=== PATIENT | female | born 1985 | race African-American/Black ===

== ENCOUNTER → 2019-10-19 | Outpatient (CLI) | payer MEDICAID ==
[2019-10-19 11:41] VITALS: BP 94/51
--- NOTE | 2019-10-19 11:41 | ER RDC ASSESSMENT REPORT ---
Intake - In the Last 14 days Have you traveled outside [place]?: No Have you been in close contact with someone CONFIRMED: No Worked in Healthcare?: No - Symptoms Subjective Fever([place] feverish): Yes Chills: No Muscule Aches: Yes Runny Nose: Yes Sore Throat: No Cough (New or worsening chronic cough): Yes Shortness of breath: Yes Nausea or Vomiting: Yes Headache: Yes Abdominal Pain: No Diarrhea(3 or more loose stools in last 24 hours): No - Do you have any of the following Chronic lung disease: Asthma or emphysema or COPD: No Chronic Lung Disease Comment: History of bronchitis Cystic Fibrosis: No Diabetes: No High Blood Pressure: No Cardiovascular Disease: No Chronic Kidney Disease: No Chronic Liver Disease: No Chronic blood disorder like Sickle Cell Disease: No Weak immune system due to disease or medication: No Neurologic condition that limits movement: Yes Neurological Condition Comment: History of seizures Developmental delay - Moderate to Severe: No Recent (within past 2 weeks) or current : No Morbid Obesity (>100 pounds over ideal weight): No Obesity Comment: 5 feet 6 inches. Unsure of weight. - Objective Temperature: 99.1 F Pulse Rate: 93 Respiratory Rate: 20 Blood Pressure: 94/51 O2 Sat by Pulse Oximetry: 94 Objective: Given above, testing performed: If Testing Performed: Test Specimen Type Sent to General - General Information source: Patient Notes: Patient RDC for COVID testing. Denies a local PCP has been symptomatic since October 14 has muscle aches felt hot with shortness of breath and a cough has been nauseous when coughing and headache with the cough has some recent history of bronchitis and had leftover and albuterol and has taken that which has helped. Reported feeling at times lightheaded. - Related Data Allergies/Adverse Reactions: No Known Allergies Allergy (Unverified 05/30/11 14:49) Past Medical History - General Information source: Patient - Social History Smoking Status: Former Smoker Neurological Medical History: Reports: Hx Seizures Psychiatric Medical History: Reports: Hx Bipolar Disorder, Hx Depression Past Surgical History: Reports: Hx Cholecystectomy Physical Exam - General General appearance: Appears well, Alert In distress: None Notes: PHYSICAL EXAMINATION: GENERAL: Well-appearing and in no acute distress. HEAD: Atraumatic, normocephalic. EYES: sclera anicteric, conjunctiva are normal. ENT: nares patent. Moist mucous membranes. NECK: Normal range of motion, supple without lymphadenopathy LUNGS: CTAB and equal. No wheezes rales or rhonchi. Resp even and unlabored. Lung sounds clear. HEART: Regular rate and rhythm without murmurs ABDOMEN: Soft, nontender, normal bowel sounds, no guarding. EXTREMITIES: No cyanosis. NEUROLOGICAL: Cranial nerves grossly intact. Normal speech. Normal gait. PSYCH: Normal mood, normal affect. SKIN: Warm, Dry, normal turgor, Diagnostic Results Laboratory Results: Informed of negative rapid strep and negative rapid flu results. Pending strep culture and covid testing results. Patient provided instructions regarding COVID to include as a person under investigation for Covid 19, the [place] department of Health and Human Services, division of public health advises you to adhere to the following guidance until your test results are reported to you. If your test result is positive, you will receive additional information from your provider and your local health department at that time. Remain at home until you are cleared by the health provider or public health authorities. Keep a log of visitors to your home, notify any visitors to your home of your isolation status. If you plan to move to a new address or leave the county, notify the local health department in your County. Call your doctor or seek care if you have an urgent medical need. Before seeking medical care, call ahead to get instructions from the provider before arriving at the medical office clinic or hospital. Notify them that you are being tested for the virus that causes Covid 19 so that arrangements can be made, as necessary, to prevent transmission to others in the healthcare setting. Next, notify the local health department in your county. If a medical emergency arises and you need to call 911, inform the first responders that you are being tested for the virus that causes Covid 19. Next, notify the local health department in your county. Patient Education/Counseling Counseling/Education: Patient presents with upper respiratory symptoms worrisome for possible Covid 19. Patient does not have emergency worring symptoms such as difficulty breathing, shortness of breath, chest pain, pressure, confusion or cyanosis. Patient appears suitable for discharge. patient instructed to follow up with Urgent Care or to ED for persisent or worsening symptoms. Patient's vital signs are stable and patient is nontoxic in appearance. Good return precautions have been discussed with patient, patient verbalized understanding and is agreeable with discharge plan of care at this time. RDC Discharge - Discharge Clinical Impression: COVID - 19 SCREENING Condition: Stable Disposition: Home; Selfcare
[2019-10-19 12:32] LABS: A TYPE INFLUENZA AG NEGATIVE (NEGATIVE); B INFLUENZA AG NEGATIVE (NEGATIVE)
== END ==
LOC: RDC 10:49
PROVIDERS: ATTEND Nurse Practitioner Family
DX: Z03.818 Encounter for observation for suspected exposure to other biological agents ruled out (principal); R50.9 Fever, unspecified; M79.10 Myalgia, unspecified site; R09.89 Other specified symptoms and signs involving the circulatory and respiratory systems; R05 Cough; R11.10 Vomiting, unspecified; R51 Headache; Z87.891 Personal history of nicotine dependence; R06.02 Shortness of breath
CPT/HCPCS: 87070; 87880; 87635; 87804; 99201 ×2; C9803

== ENCOUNTER 2020-03-27 13:56 | Emergency (ER) | payer MEDICAID ==
[2020-03-27] MEDS ORDERED: ONDANSETRON 4 MG TAB.RAPDIS PO ONE (14:20)
--- NOTE | 2020-03-27 14:21 | ER Document Report ---
ED Medical Screen (RME) - General Stated Complaint: ABDOMINAL PAIN/VOMITING Time Seen by Provider: 03/27/20 14:18 Notes: HPI: 35-year-old female with history of epilepsy no other significant medical problems presenting with sudden onset of lower abdominal and pelvic cramping that began approximately 2 hours ago. Multiple episodes of vomiting at home no diarrhea. Patient felt fine this morning. No fevers PHYSICAL EXAMINATION: Moderately uncomfortable. Tenderness across the pelvis on palpation generally, limited exam in triage process I have greeted and performed a rapid initial assessment of this patient. A comprehensive ED assessment and evaluation of the patient, analysis of test results and completion of medical decision making process will be conducted by an additional ED providers. - Related Data Allergies/Adverse Reactions: No Known Allergies Allergy (Unverified 05/30/11 14:49) Past Medical History Neurological Medical History: Reports: Hx Seizures Psychiatric Medical History: Reports: Hx Bipolar Disorder, Hx Depression Past Surgical History: Reports: Hx Cholecystectomy - Immunizations Immunizations up to date: No Hx Diphtheria, Pertussis, Tetanus Vaccination: No
[2020-03-27 15:57] LABS: ABSOLUTE LYMPHOCYTES (AUTO) 2.5 10^3/uL (0.5-4.7); ABSOLUTE MONOCYTES (AUTO) 0.6 10^3/uL (0.1-1.4); ABSOLUTE NEUT (AUTO) 7.2 10^3/uL (1.7-8.2); BASOPHILS % (AUTO) 0.2 % (0-2); EOSINOPHILS % (AUTO) 0.3 % (0-6); HEMATOCRIT 39.2 % (36.0-47.0); HEMOGLOBIN 13.6 g/dL (12.0-15.5); LYMPHOCYTES % (AUTO) 24.4 % (13-45); MEAN CORPUSCULAR HEMOGLOBIN 29.6 pg (27.0-33.4); MEAN CORPUSCULAR HGB CONC 34.7 g/dL (32.0-36.0); MEAN CORPUSCULAR VOLUME 85 fl (80-97); MONOCYTES % (AUTO) 5.8 % (3-13); PLATELET COUNT 212 10^3/uL (150-450); RED CELL DISTRIBUTION WIDTH 14.4 % (11.5-14.0); SEGMENTED NEUTROPHILS % (AUTO) 69.3 % (42-78); TOTAL CELLS COUNTED % (AUTO) 100 %; WHITE BLOOD COUNT 10.3 10^3/uL (4.0-10.5)
[2020-03-27 16:16] LABS: ALBUMIN 4.3 g/dL (3.5-5.0); ALKALINE PHOSPHATASE 70 U/L (38-126); ANION GAP 6 (5-19); ASPARTATE AMINO TRANSFERASE 21 U/L (14-36); BILIRUBIN,DIRECT 0.1 mg/dL (0.0-0.4); BILIRUBIN,TOTAL 0.4 mg/dL (0.2-1.3); BLOOD UREA NITROGEN 4 mg/dL (7-20); CALCIUM 9.7 mg/dL (8.4-10.2); CARBON DIOXIDE 26 mmol/L (22-30); CHLORIDE 107 mmol/L (98-107); GLUCOSE 102 mg/dL (75-110); POTASSIUM 3.8 mmol/L (3.6-5.0); TOTAL PROTEIN 7.2 g/dL (6.3-8.2)
[2020-03-27 18:07] LABS: APPEARANCE,URINE SLIGHTLY-CLOUDY; BILIRUBIN,URINE NEGATIVE (NEGATIVE); COLOR,URINE AMBER; GLUCOSE, URINE NEGATIVE (NEGATIVE); KETONES,URINE NEGATIVE (NEGATIVE); LEUKOCYTE ESTERASE,URINE NEGATIVE (NEGATIVE); NITRITE,URINE NEGATIVE (NEGATIVE); PROTEIN,URINE 30 mg/dL (NEGATIVE); URINE SPECIFIC GRAVITY 1.028
[2020-03-27] MEDS ORDERED: ONDANSETRON HCL INJ/PF 4 MG/2 ML SDV IV ONE (18:29)
[2020-03-27] MEDS ORDERED: MORPHINE SULFATE 10 MG/ML INJ IV ONE (18:29)
[2020-03-27] MEDS ORDERED: NORMAL SALINE 1000 ML 1,000 ML IV ONE (20:33)
[2020-03-27] MEDS ORDERED: KETOROLAC TROMETHAMINE INJ/PF 30 MG/1 ML SDV IV ONE (20:34)
--- NOTE | 2020-03-27 21:25 | ER Document Report ---
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 Patient denies any trauma or sexual activity precipitating her symptoms. Patient monogamous with patient felt completely well prior to onset of pain few hours ago. Patient denies any prior episodes, diarrhea, constipation, melena, bright red blood per rectum, vaginal bleeding or discharge, fever, flank pain, urinary symptoms, immune compromise, dizziness, syncope - Related Data Allergies/Adverse Reactions: No Known Allergies Allergy (Verified 03/27/20 17:54) Home Medications: Lamictal 150mg BID Past Medical History - General Information source: Patient - Social History Smoking Status: Current Some Day Smoker Chew tobacco use (# tins/day): No Frequency of alcohol use: Occasional Drug Abuse: Marijuana Family History: Reviewed & Not Pertinent Patient has homicidal ideation: No Neurological Medical History: Reports: Hx Seizures Psychiatric Medical History: Reports: Hx Bipolar Disorder, Hx Depression Past Surgical History: Reports: Hx Cholecystectomy - Immunizations Immunizations up to date: No Hx Diphtheria, Pertussis, Tetanus Vaccination: No Review of Systems - Review of Systems Notes: REVIEW OF SYSTEMS: CONSTITUTIONAL : Denies fever, chills, or sweats. EENT: Denies recent cold/sinus symptoms, denies throat pain CARDIOVASCULAR: Denies chest pain, [place] RESPIRATORY: Denies cough, denies shortness of breath. GASTROINTESTINAL: + abdominal pain, +nausea/vomiting. GENITOURINARY: Denies difficulty urinating, painful urination. FEMALE GENITOURINARY: Denies abnormal vaginal bleeding, vaginal discharge. MUSCULOSKELETAL: Denies neck pain, injuries SKIN: Denies rash or skin lesions. HEMATOLOGIC : Denies easy bruising or bleeding. LYMPHATIC: Denies swollen, enlarged glands. NEUROLOGICAL: Denies headache, denies change in gait. PSYCHIATRIC: Denies anxiety or stress or depression. Physical Exam - Vital signs Vitals: Temp Pulse Resp BP Pulse Ox 98.3 F 80 20 105/68 99 03/27/20 14:23 03/27/20 14:23 03/27/20 14:23 03/27/20 14:23 03/27/20 14:23 - Notes Notes: PHYSICAL EXAMINATION: GENERAL: Well-appearing, well-nourished, pleasant talkative young adult female sitting up in stretcher with no visible signs of discomfort in no acute distress HEAD: Atraumatic, normocephalic. EYES: Pupils equal round and appropriate constriction, sclera anicteric, conjunctiva are normal. ENT: nares patent, moist mucous membranes. NECK/BACK: Normal range of motion, supple without lymphadenopathy, no midline spinal tenderness or deformity LUNGS: Breath sounds clear to auscultation bilaterally and equal. No wheezes rales or rhonchi. HEART: Regular rate and rhythm without murmurs ABDOMEN: Soft, mild discomfort on deep palpation of periumbilical/left lower quadrant/left pelvic areas, no rebound, no guarding, no masses, no CVA tenderness EXTREMITIES: Normal range of motion, no pitting or edema. No cyanosis. NEUROLOGICAL: Awake, alert, conversing appropriately, moves all extremities spontaneously. PSYCH: Normal mood, normal affect. SKIN: Warm, Dry, normal turgor, no rashes or lesions noted. Course - Re-evaluation Re-evalutation: 03/27/20 21:25 Patient with sudden onset periumbilical/left pelvic/left lower quadrant pain, now greatly improved but still present, very mild discomfort on deep palpation, patient very well-appearing with no signs of acute surgical abdomen at this time. Symptoms may be secondary to intermittent torsion versus ruptured ovarian cyst versus less likely internal hernia, diverticulitis, atypical appendicitis. Will give patient additional analgesia and obtain transvaginal ultrasounds, if no signs of cyst rupture or enlarged ovary will obtain CT abdomen pelvis to rule out aforementioned other diagnoses. Will continue to monitor, very likely discharge with outpatient follow-up and strict return precautions. 03/28/20 01:16 Patient continued to feel improved however still had some mild tenderness in the left lower quadrant so CT was obtained which showed right ovarian cyst with appearance of having recently ruptured consistent with patient's symptoms. Possible mild enteritis developing but no current indication for any antibiotics and this is less likely because of patient's symptoms, may have mild enteritis from irritation of small amounts of blood in the abdominal cavity. Patient is now tolerating p.o., had p.o. trial in ED. Informed patient of findings and instructed patient to follow-up with PCP and MEDICAL FEE CLERK. Gave patient extensive return to ED precautions which she demonstrated understanding of. Patient demonstrates relief that her symptoms have greatly improved and is in agreement with discharge plan and denied having any other questions or concerns at time of my discharge. - Vital Signs Vital signs: Temp Pulse Resp BP Pulse Ox 97.6 F 70 18 108/69 100 03/28/20 02:54 03/28/20 02:13 03/28/20 02:13 03/28/20 02:13 03/28/20 02:13 - Laboratory Result Diagrams: 03/27/20 15:45 03/27/20 15:45 Laboratory results interpreted by me: 03/27/20 03/27/20 03/27/20 15:45 15:45 17:20 RDW 14.4 H BUN 4 L Urine Protein 30 H Urine Urobilinogen 2.0 H Discharge - Discharge Clinical Impression: Ovarian cyst rupture Abdominal pain Qualifiers: Abdominal location: left lower quadrant Qualified Code(s): R10.32 - Left lower quadrant pain Proteinuria Qualifiers: Proteinuria type: unspecified Qualified Code(s): R80.9 - Proteinuria, unspecified Disposition: HOME, SELF-CARE Additional Instructions: Abdominal Pain There are many causes of abdominal pain. Pain can mean a serious problem requiring surgery (such as appendicitis). It can also be an innocent problem that goes away on its own (such as a viral infection). Often, time must pass to determine the cause of pain. The physician does not feel that hospitalization is necessary, at present. Things may change within the next 24 hours. Call the doctor or come back for re- examination if any problems occur, such as: (1) Pain that becomes more severe, steady, or becomes concentrated in one specific area. Also, pain that is more severe with movement or coughing. (2) Vomiting that persists or becomes more frequent. (3) Blood in the vomitus, urine, or bowel movements. Blood in the stool may have a tarry or black appearance. (4) Shaking chills or fever greater than 100 degrees F. (5) The abdomen becomes more distended or swollen. (6) Bowel movements cease. (7) Failure to improve as expected. Ovarian Cyst Your examination shows the presence of an ovarian cyst. This is a ball of fluid attached to the ovary. Ovarian cysts in women of child-bearing age are usually innocent. However, the cyst may cause pain when it grows or bursts. An innocent ovarian cyst will usually go away by itself. When the cyst becomes painful, you should rest. Pain medication may be required. Some women find a hot water bottle soothing. The pain usually resolves within one or two days. After menopause, an ovarian cyst may mean a tumor, and requires more aggressive evaluation -- usually surgery is recommended to remove or biopsy the cyst. A very large cyst requires evaluation at any age. Most cysts (even the i nnocent ones) require follow-up examination. Call the doctor or return at any time if the pain increases significantly, if you become faint, or if you experience vaginal bleeding. You had protein in your urine during this visit, you should discuss this with your primary doctor. Follow-up with your primary doctor and your contract coordinator within 2 weeks. If you have any worsening symptoms, worsening vomiting, unable to keep down liquids by mouth, black stool, bloody stool, fever, dizziness, fainting, or any other worsening or alarming symptoms please return to the emergency department immediately. Prescriptions: Ondansetron [Zofran Odt 4 mg Tablet] 1 tab PO Q6HP PRN #6 tab.rapdis PRN Reason: For Nausea/Vomiting Referrals: YUSUF MOTTA MD [ACTIVE PROVISIONAL STAFF] - Follow up in 1 week DHRUV GREY MD [COMMUNITY BASED STAFF] - Follow up in 1 week
--- NOTE | 2020-03-27 21:30 | RADIOLOGY REPORT (SQ) ---
EXAM DESCRIPTION: US PELVIS TRANSVAGINAL COMPLETED DATE/TME: 03/27/2020 21:10 CLINICAL HISTORY: 35 years, Female, sudden severe left periumb/pelvic pain Findings: Uterus measures 8.4 x 3 cm. Endometrium measures 7 mm. Cervix measures 3 cm. Right ovary measures 4 x 3 x 2 cm. Left ovary measures 2.2 x 2 cm. Vascular flow preserved within both ovaries on color and spectral Doppler imaging. No abnormal uterine masses. Mild free fluid in the cul-de-sac. IMPRESSION: No torsion. No abnormal adnexal masses.
--- NOTE | 2020-03-28 00:46 | RADIOLOGY REPORT (SQ) ---
EXAM DESCRIPTION: CT ABD/PELVIS WITH IV ONLY CLINICAL HISTORY: 35 years Female; LLQ pain HCG NEG TECHNIQUE: CT of the abdomen and pelvis with intravenous contrast.. Oral contrastWas not used. Delayed imaging of the abdomen and pelvis was performed. All CT scans at this facility use dose modulation, iterative reconstruction, and/or weight based dosing when appropriate to reduce radiation dose to as low as reasonably achievable. This exam was performed according to our department optimization program which includes automated exposure control, adjustment of the mA and/or kv according to patient size and/or use of iterative reconstruction technique. COMPARISON: None. FINDINGS: Lower chest:The lung bases are clear. The visualized portion of heart and great vessels are normal. Abdomen: Liver and biliary tree: The gallbladder is surgically absent. There is homogeneous enhancement of the liver. Portal vein and hepatic veins are patent. There is mild prominence of the common bile duct which most likely is related to previous cholecystectomy. Pancreas: Normal Spleen:Within normal limits Kidneys: Kidneys are normal in size, shape and position. No stones. No mass or hydronephrosis. Symmetric renal enhancement. On delayed images there is symmetric contrast excretion and the ureters appear normal. Adrenal glands:Within normal limits Vascular structures:Within normal limits Retroperitoneum: No mass or lymphadenopathy Abdominal wall: Small umbilical hernia containing omentum. GI: There are scattered diverticula. No focal inflammation is seen in the bowel. No obstruction. The bowel gas pattern is nonspecific with fluid noted in the large and small bowel which is not distended. This raises the possibility of enteritis. Appendix: The appendix appears normal. General: Small amount of free fluid is present in the cul-de-sac. No free air. Pelvis: Lymph nodes: No mass or lymphadenopathy Bladder: The bladder is mostly empty. On delayed images there is contrast enhanced urine seen in the bladder. Pelvis: Uterus is unremarkable. In the right adnexa is a crenulated appearing cyst measuring 19 mm. This is consistent with a collapsing ovarian cyst. Bones: No acute bone findings. IMPRESSION: 1. Postsurgical change of cholecystectomy. 2. No renal or ureteral stones. No hydronephrosis. 3. Scattered diverticula. No diverticulosis. Nonspecific bowel gas pattern raising the possibility of enteritis. 4. Trace free fluid in the cul-de-sac with a collapsing cyst seen in the right ovary.
[2020-03-28] MEDS ORDERED: ONDANSETRON HCL INJ/PF 4 MG/2 ML SDV IV ONE (01:55)
[2020-03-28 02:45] VITALS: BP 108/69
== END 2020-03-28 02:15 | disposition home or self-care (01) ==
LOC: ER 13:56
DX: N83.8 Other noninflammatory disorders of ovary, fallopian tube and broad ligament (principal); R10.32 Left lower quadrant pain; R80.9 Proteinuria, unspecified; R10.33 Periumbilical pain; M54.5 Low back pain; R11.2 Nausea with vomiting, unspecified; Z79.899 Other long term (current) drug therapy; F17.200 Nicotine dependence, unspecified, uncomplicated
CPT/HCPCS: 96376; 99285; 96361; 96374; 96375; 36415; 83690; 84703; 85025; 80053; 81001; 76830; 93976; 74177; J1885; J2270; J2405 ×2; J7030